=== PATIENT | male | born 1975 ===

== ENCOUNTER → 2021-05-29 | Outpatient (CLI) | payer BC ==
--- NOTE | 2021-05-24 08:34 | NUR ---
NO VOICEMAIL SET UP
[~2021-05-29] VITALS: Ht 188 cm; Wt 115.6 kg
[2021-05-29 12:10] VITALS: BP 144/95; PULSE 76; TEMP 98.5
[2021-05-29 13:40] VITALS: BP 153/97; PULSE 75
== END ==
LOC: COL.RAD 11:55
DX: M47.22 Other spondylosis with radiculopathy, cervical region (principal)
CPT/HCPCS: J1100